=== PATIENT | male | born 1950 | race Caucasian/White ===

== ENCOUNTER 2018-05-14 09:11 | Inpatient (IN) | payer MEDICARE, OTHER ==
[~2018-05-14] VITALS: Ht 172.7 cm; Wt 79.6 kg
[2018-05-14] VITALS (16 sets, daily range): BP systolic 109–153; BP diastolic 51–87; Ht 172.7 cm; Wt 79.6 kg
--- NOTE | ~2018-05-14 | HEMODYNAMI ---
PATIENT:JUSTYN SEPULVEDA MEDICAL RECORD: [id number] : 48 LOCATION:[facility] D.2308 ADMISSION DATE: 05/14/18 Generatedon:05/16/20188:59 Patient name: JUSTYN SEPULVEDA Patient #: [id number] SSN: : 1 08/10/1949 Date of study: 05/16/2018 Page: Of Hemodynamic Procedure Report Patient Data Patient Demographics Procedure consent was obtained First Name: JUSTYN Gender: Male Last Name: COCO : 1950 Patient #: [id number] Age: 67 year(s) Race: Unknown Additional ID: [id number] Contact details Address: [address] [place] [address] State: [place] City: [place] Zip code: [address] Admission Admission Data Admission Date: 05/14/2018 Admission Time: 11:57 Room #: D.2308 Procedure Procedure Types Cath Procedure PCI Procedure Coronary Stent Coronary Stent Initial Procedure Description Procedure Date Procedure Date: 05/16/2018 Procedure Start Time: 8:40 Procedure End Time: 8:57 Procedure Staff Name Function Luiz Mayer MD Performing Physician Christohper Johnson RN Nurse Nikki Rios RT Scrub Hema Chacon RN Nurse Adwoa Valente RT Monitor Procedure Data Cath Procedure Fluoroscopy Diagnostic fluoroscopy Total fluoroscopy Time: 4 time: 4 min min Diagnostic fluoroscopy Total fluoroscopy dose: 433 dose: 433 mGy mGy Contrast Material Contrast Material Type Amount (ml) Isovue 300 62 Entry Location Entry Primary Successful Side Size Upsize Upsize Entry Closure Nair ccessful Closure Location (Fr) 1 (Fr) 2 (Fr) Remarks Device Remarks Radial Right 6 Fr Mechanical artery Short Compression Estimated blood loss: 10 ml Procedure Complications No complications Procedure Medications Medication Administration Route Dosage 0.9% NaCl I.V. 100 ml/hr Oxygen etCO2 Nasal cannula 2 l/min Heparin Flush Bag added to field 2 bags (1000units/500ml NS) Lidocaine 2% added to field 20 Radial Cocktail added to field 1 syringe (Verapomil 2mg/Nitro 400mcg/Heparin 1500units) Versed I.V. 1 mg Fentanyl I.V. 50 mcg Radial Cocktail I.A. 1 syringe (Verapomil 2mg/Nitro 400mcg/Heparin 1500units) Heparin Bolus I.V. 8000 units Nitroglycerin IC/IA I.C. 100 mcg Versed I.V. 1 mg Fentanyl I.V. 50 mcg Plavix P.O. 75 mg Hemodynamics Rest Heart Rate: 61 (bpm) Snapshots Pre Cath Intra NCS Post Cath Vital Signs Time Heart Resp SPO2 etCO2 NIBP (mmHg) Rhythm Pain Sedation Rate (ipm) (%) (mmHg) Status Level (bpm) 8:25:28 84 14 98 0 124/73(102) NSR 0 (11) 10(A) , No pain 8:29:47 59 15 100 32.4 117/58(73) NSR 0 (11) 10(A) , No pain 8:34:03 53 14 98 32.4 93/54(67) NSR 0 (11) 10(A) , No pain 8:38:15 58 19 92 26.4 104/51(80) NSR 0 (11) 10(A) , No pain 8:42:25 69 12 97 29.4 92/54(69) NSR 0 (11) 9(A) , No pain 8:46:33 70 13 96 32.4 107/61(74) NSR 0 (11) 9(A) , No pain 8:50:45 79 13 96 24.1 110/58(82) NSR 0 (11) 9(A) , No pain 8:54:59 77 13 96 30.2 119/62(88) NSR 0 (11) 10(A) , No pain Medications Time Medication Route Dose Verified Delivered Reason Note s Effectiveness by by 8:29:46 0.9% NaCl I.V. 100 Hema Hema Per physician ml/hr Oswaldo Chacno RN RN 8:29:55 Oxygen etCO2 2 l/min Hema Hema Per physician Nasal Oswaldo Chacon cannula RN RN 8:30:08 Heparin Flush added 2 bags Hema Hema used for Bag to Oswaldo Chacon procedure (1000units/500ml field RN RN NS) 8:30:18 Lidocaine 2% added 20ml Hema Hema for local to vial Lorigan Raysaigan anesthetic field RN RN 8:30:30 Radial Cocktail added 1 Hema Hema used for (Verapomil to syringe Oswaldo Chaocn procedure 2mg/Nitro field RN RN 400mcg/Heparin 1500units) 8:30:40 Versed I.V. 1 mg Hema Hema for sedation Oswaldo Chacon RN RN 8:30:52 Fentanyl I.V. 50 mcg Hema Hema for sedation Oswaldo Chacon RN RN 8:41:25 Radial Cocktail I.A. 1 Hema Luiz for (Verapomil syringe Oswaldo Mayer MD vasodilation 2mg/Nitro RN 400mcg/Heparin 1500units) 8:44:30 Versed I.V. 1 mg Hema Hema for sedation Oswaldo Chacon RN RN 8:44:44 Fentanyl I.V. 50 mcg Hema Hema for sedation Oswaldo Chacon RN RN 8:44:51 Heparin Bolus I.V. 8,000 Hema Hema for units Oswaldo Chacon anticoagulation RN RN 8:48:44 Nitroglycerin I.C. 100 mcg Hema Luiz for IC/IA Oswaldo Mayer MD vasodilation RN 8:59:19 Plavix P.O. 75 mg Hema Hema for Oswaldo Chacon antiplatelet RN RN therapy Procedure Log Time Note 8:04:32 Christopher Johnson RN sent for patient. Start room use. 8:04:33 Time tracking: Regular hours (M-F 7:00 - 5:00) 8:04:36 Plan of Care:Hemodynamics will remain stable., Cardiac rhythm will remain stable., Comfort level will be maintained., Respiratory function will remain adequate., Patient/ family verbilizes understanding of procedure., Procedure tolerated without complication., Recovers from procedure without complications.. 8:20:44 Patient received from ICU to CCL 1 Alert and oriented. Tansferred to table in Supine position. 8:20:45 Warm blankets applied, and gricel hugger turned on for patient comfort. 8:20:46 Correct patient and procedure confirmed by team. 8:20:47 Signed procedure consent form obtained from patient. 8:20:56 ECG and BP/O2 sat monitors applied to patient. 8:24:11 Vital chart was started 8:24:13 Baseline sample Acquired. 8:24:18 Rhythm: sinus rhythm 8:24:21 Full Disclosure recording started 8:24:30 H&P Date Dictated: 05/15/2018 Within 30 days and on chart., H&P Addendum completed by physician on day of procedure. (MUST COMPLETE FOR ALL OUTPATIENTS). 8:24:33 Pre-procedure instructions explained to patient. 8:24:35 Family in waiting room. 8:24:39 Patient NPO since Breakfast. 8:24:54 Is the patient allergic to Iodine/contrast media? No. 8:24:56 Was the patient premedicated? Yes 8:24:57 Is patient on blood thinner?Yes 8:25:03 ACC The patient was administered the following blood thiners within the last 24 hours: ACCPlavix 8:26:51 Patient diabetic? No. 8:26:59 Snore? Yes 8:27:00 Sleep apnea? No 8:27:09 Patient pain scale 0/10 ?. 8:27:16 IV patent on arrival in left forearm with 0.9% NaCl at [facility]. 8:27:23 Lab results completed and on chart. 8:27:28 Right Radial & Right Groin area was prepped with chlora-prep and draped in sterile fashion 8:27:30 Alarms reviewed by R. N. 8:27:30 Sharps counted by scrub and verified by R.N. 8:27:31 Physician paged 8:27:33 Physician arrived 8:27:34 --------ALL STOP TIME OUT------ 8:27:34 Final Timeout: patient, procedure, and site verified with staff and physician. All members of the team are in agreement. 8:27:37 Right Radial & Right Groin site verified by team. 8:27:42 Physical assessment completed. ASA score P 2 - A patient with mild systemic disease as per Luiz Mayer MD. 8:27:46 Sedation plan: IV Moderate Sedation Medication:Versed, Fentanyl 8:27:53 Use device set Femoral Dx 8:28:05 ACIST Syringe (97613) opened to sterile field. 8:28:06 Bag Decanter () opened to sterile field. 8:28:06 Medline Cath Pack ([id number]) opened to sterile field. 8:28:07 DIAGNOSTIC WIRE .035 260cm J wire (460080) opened to sterile field. 8:28:09 ACIST Hand Control (84266) opened to sterile field. 8:28:09 ACIST Manifold (69635) opened to sterile field. 8:28:10 DIAGNOSTIC Multipack 5Fr catheter set (OS3991) opened to sterile field. 8:28:11 Tegaderm 4 x 4 (1626W) opened to sterile field. 8:28:39 SHEATH 6Fr Prelude Radial ([id number]) opened to sterile field. 8:28:52 BMW 300cm [place] 2 J wire ([id number]) opened to sterile field. 8:28:53 INFLATOR Merit BasixCompak (FZ3613) opened to sterile field. 8:29:22 TUBING High Pressure Extension Tubing (Moreno) ([id number]) opened to sterile field. 8:29:46 0.9% NaCl 100 ml/hr I.V. was administered by Hema Chacon RN; Per physician; 8:29:55 Oxygen 2 l/min etCO2 Nasal cannula was administered by Hema Chacon RN; Per physician; 8:30:08 Heparin Flush Bag (1000units/500ml NS) 2 bags added to field was administered by Hema Chacon RN; used for procedure; 8:30:18 Lidocaine 2% 20ml vial added to field was administered by Hema Chacon RN; for local anesthetic; 8:30:30 Radial Cocktail (Verapomil 2mg/Nitro 400mcg/Heparin 1500units) 1 syringe added to field was administered by Hema Chacon RN; used for procedure; 8:30:40 Versed 1 mg I.V. was administered by Hema Chacon RN; for sedation; 8:30:52 Fentanyl 50 mcg I.V. was administered by Hema Chacon RN; for sedation; 8:39:22 GUIDE 6FR XBLAD 3.5 catheter ([id number]) opened to sterile field. 8:39:37 Procedure started. 8:40:39 Local anesthetic to right radial artery with Lidocaine 2% by Luiz Mayer MD.INITIAL ACCESS ONLY 8:40:51 A 6 Fr Short sheath was inserted into the Right Radial artery 8:41:06 6 Fr XBLAD 3.5 guide catheter was inserted over the wire 8:41:25 Radial Cocktail (Verapomil 2mg/Nitro 400mcg/Heparin 1500units) 1 syringe I.A. was administered by Luiz Mayer MD; for vasodilation; 8:42:07 BMW wire advanced. 8:44:30 Versed 1 mg I.V. was administered by Hema Chacon RN; for sedation; 8:44:44 Fentanyl 50 mcg I.V. was administered by Hema Chacon RN; for sedation; 8:44:51 Heparin Bolus 8,000 units I.V. was administered by Hema Chacon RN; for anticoagulation; 8:46:10 Wire advanced across lesion. 8:48:44 Nitroglycerin IC/IA 100 mcg I.C. was administered by Luiz Mayer MD; for vasodilation; 8:52:09 Place stent Inflation Number: 1 A INTEGRITY OTW 2.5 X 12 stent ([id number]) was prepped and advanced across the Mid CX. The stent was deployed at 10 RUDY for 0:11 (min:sec). 8:52:45 Stent catheter was removed intact over wire. 8:53:44 Wire removed. 8:54:00 TR BAND Standard ([id number]) opened to sterile field. 8:54:05 Guide catheter removed. 8:54:19 Sheath removed intact; hemostasis achieved with Mechanical Compression to the Right Radial artery. 8:54:22 Procedure ended.(Physican Out) 8:55:31 Fluoroscopy time 04.00 minutes. 8:55:36 Flurop Dose total: 433 8:55:36 Fluoroscopy dose: 433 mGy 8:55:43 Contrast amount:Isovue 300 62ml. 8:55:46 Sharps counted by scrub and verified by R.N. 8:56:02 TR band inflated with 12cc of air. 8:56:05 Insertion/operative site no bleeding no hematoma. 8:56:08 Post Procedure Pulses reassessed and unchanged 8:56:13 Post procedure rhythm: sinus rhythm 8:56:18 Estimated blood loss: 10 ml 8:56:21 Post procedure instruction explained to patient.Patient verbalizes understanding. 8:56:44 Procedure and supply charges have been captured, reviewed, submitted and are correct. 8:57:15 Procedure Complication : No complications 8:57:19 Vital chart was stopped 8:57:33 Report given to ICU. 8:57:38 Patient transfered to ICU with Bed. 8:57:44 Procedure ended. 8:57:44 Full Disclosure recording stopped 8:57:47 End room use (Document Last) 8:59:19 Plavix 75 mg P.O. was administered by Hema Chacon RN; for antiplatelet therapy; 8:59:36 ACC-PCI Only Patient was given prescriptions, or instructed by Luiz Mayer MD to start/continue the following medications upon discharge: Plavix Intervention Summary Intervention Notes Time ActionType Lesion and Equipment Action# Pressure Duration Attributes Used 8:52:09 Place stent Mid CX INTEGRITY 1 10 00:11 OTW 2.5 X 12 stent ([id number]) Device Usage Item Name Manufacture Quantity Catalog Number Hospital Part Current M inimal Lot# / Charge Number Stock Stock Serial# Code ACIST Syringe Acist 1 07413 385233 391548 630770 2 0 (31693) Medical Systems Inc Bag Decanter Microtek 1 2001S 831889 73811 920610 5 (2001S) Medical Inc. Medline Cath Cardinal 1 [id number] 433149 03411 621844 5 Zutux Health ([id number]) DIAGNOSTIC WIRE [facility] Timothy 1 650634 306925 337568 777292 3 0 .035 260cm J wire (665853) ACIST Hand Acist 1 68645 514125 599559 669912 5 Control (79587) Medical Systems Inc ACIST Manifold Acist 1 84724 729529 785630 156569 5 (45287) Medical Systems Inc DIAGNOSTIC Cardinal 1 LQ5594 355317 01979 767499 3 0 Multipack 5Fr Health catheter set (XP6007) Tegaderm 4 x 4 3M 1 1626W 714292 778198 209070 5 (1626W) SHEATH 6Fr Merit 1 [id number] 653150 658297 055257 5 Prelude Radial Medical ([id number]) BMW 300cm [place] 1 [id number] 793529 869952 828565 5 [place] 2 J Vascular wire ([id number]) INFLATOR Merit Merit 1 AP8779 141058 700375 023219 1 5 Reksoft Medical (EY1935) TUBING High Merit 1 [id number] 647600 90863 365452 1 0 Pressure Medical Extension Tubing (Moreno) (RL5544M) GUIDE 6FR XBLAD Cardinal 1 [id number] 396530 474160 177327 1 0 3.5 catheter Health ([id number]) INTEGRITY OTW Medtronic 1 [id number] 335884 236288 3 [id number] 2.5 X 12 stent ([id number]) TR BAND Terumo 1 [id number] 154058 871673 618475 4 0 Standard ([id number]) Signature Audit [place] Stage Time Signature Unsigned Intra-Procedure 05/16/2018 Adwoa Valente 8:59:53 AM RT(R) Signatures Monitor : Adwoa Valente Signature : RT Date : Time : [id number] [place] [address]
--- NOTE | ~2018-05-14 | MORECARE ---
CASE MANAGEMENT DISCHARGE SUMMARY PATIENT: JUSTYN SEPULVEDA UNIT: [id number] ADM DATE: 05/14/18 AGE: 67 : 49 SEX: M ROOM/BED: D.2308 AUTHOR: ANGELA WATSON PHYSICIAN: REFERRING PHYSICIAN: ERIC HANSON DO DATE OF SERVICE: 05/17/18 Discharge Plan Patient Name: JUSTYN SEPULVEDA Facility: [facility]:[place] : 1950 Planned Disposition: Home Anticipated Discharge Date: 05/17/18 Discharge Date: 05/16/2018 Expected LOS: 3 Initial Reviewer: [email or web address] Initial Review Date: 05/14/2018 Generated: 05/17/18 2:46 pm DCP- Discharge Planning Updated by [email or web address]: Talia Lucas on 05/14/18 12:[address] Patient Name: JUSTYN SEPULVEDA Admission Status: ER Accout number: [id number] Admission Date: 05-14-2018 : 1950 Admission Diagnosis: Attending: Eric Hanson Current LOS: 1 Anticipated DC Date: 05-17-2018 Planned Disposition: Home Primary Insurance: MEDICARE A & B Discharge Planning Comments: CM met with patient and spouse to complete initial dc planning assessment. CM educated patient on the CM role and verbal consent given by patient to complete assessment. Patient lives at home with his . He reports he is independent in his care at home. He was playing golf this morning when he started feeling bad. At discharge patient hopes to return home and feels this is a safe discharge. Patient is unsure what he will need at discharge. CM will continue to follow and will assist as needed with dc plans/needs. See below for more assessment information. Is the patient Alert and Oriented? Yes * How many steps to enter\exit or inside your home? None * PCP Dr. Jackson * Pharmacy [facility] * Preadmission Environment Home with Family * ADLs Independent * Equipment None * List name and contact numbers for known caregivers / representatives who currently or will assist patient after discharge: Tavia Orourke - - [phone] Radha Rosado - Niece - [phone] * Verbal permission to speak to the caregivers and representatives has been obtained from the patient. Yes * Community resources currently utilized None * Has this patient been hospitalized within the prior 30 days at any hospital? No Blast Furnace Keeper Helper: Talia Lucas DCPIA - Discharge Planning Initial Assessment Updated by [email or web address]: Talia Lucas on 05/14/18 1:53 pm * Is the patient Alert and Oriented? Yes * How many steps to enter\exit or inside your home? None * PCP Dr. Jackson * Pharmacy [facility] * Preadmission Environment Home with Family * ADLs Independent * Equipment None * List name and contact numbers for known caregivers / representatives who currently or will assist patient after discharge: Tavia Orourke - - [phone] - [phone] * Verbal permission to speak to the caregivers and representatives has been obtained from the patient. Yes * Community resources currently utilized None * Has this patient been hospitalized within the prior 30 days at any hospital? No Coverage Notice Reviewer: [email or web address] William Allred Notice Issued Date-Time: 05/16/2018 12:55 Notice Type: IM Discharge Notice Notice Delivered To: Patient Relationship to Patient: Self Water Treatment Plant Operator Name: Delivery Method: HAND - Hand Delivered Hanny Days: Prior Verbal Notification: Recipient Understood Notice: Yes Recipient Signature: Yes Med Rec Note Co-signed by Attending: Coverage Notice Comment: Last DP export: 05/14/18 1:02 Patient Name: JUSTYN SEPULVEDA Page 38365 at 1346 All edits/amendments must be made on the electronic document DICTATION DATE: 05/17/18 1346 OYSTER BUYER: CLAUDIA 05/17/18 1346 RPT#: [id number] DC DATE:05/16/18 STATUS: DIS IN [facility] [address] [place] [address] END OF REPORT
--- NOTE | ~2018-05-14 | MORECARE ---
CASE MANAGEMENT DISCHARGE SUMMARY PATIENT: JUSTYN SEPULVEDA UNIT: [id number] ADM DATE: 05/14/18 AGE: 67 : 49 SEX: M ROOM/BED: D.2308 AUTHOR: ANGELA WATSON PHYSICIAN: REFERRING PHYSICIAN: ERIC HANSON DO DATE OF SERVICE: 05/14/18 Discharge Plan Patient Name: JUSTYN SEPULVEDA Facility: [facility]:[place] : 1950 Planned Disposition: Home Anticipated Discharge Date: 05/17/18 Discharge Date: Expected LOS: 3 Initial Reviewer: [email or web address] Initial Review Date: 05/14/2018 Generated: 05/14/18 3:02 pm DCP- Discharge Planning Updated by [email or web address]: Talia Lucas on 05/14/18 12:[address] Patient Name: JUSTYN SEPULVEDA Admission Status: ER Accout number: [id number] Admission Date: 05-14-2018 : 1950 Admission Diagnosis: Attending: Eric Hanson Current LOS: 1 Anticipated DC Date: 05-17-2018 Planned Disposition: Home Primary Insurance: MEDICARE A & B Discharge Planning Comments: CM met with patient and spouse to complete initial dc planning assessment. CM educated patient on the CM role and verbal consent given by patient to complete assessment. Patient lives at home with his . He reports he is independent in his care at home. He was playing golf this morning when he started feeling bad. At discharge patient hopes to return home and feels this is a safe discharge. Patient is unsure what he will need at discharge. CM will continue to follow and will assist as needed with dc plans/needs. See below for more assessment information. Is the patient Alert and Oriented? Yes * How many steps to enter\exit or inside your home? None * PCP Dr. Jackson * Pharmacy [facility] * Preadmission Environment Home with Family * ADLs Independent * Equipment None * List name and contact numbers for known caregivers / representatives who currently or will assist patient after discharge: Tavia Orourke - - [phone] Radha Rosado - Niece - [phone] * Verbal permission to speak to the caregivers and representatives has been obtained from the patient. Yes * Community resources currently utilized None * Has this patient been hospitalized within the prior 30 days at any hospital? No Donor Technician: Talia Lucas DCPIA - Discharge Planning Initial Assessment Updated by [email or web address]: Talia Lucas on 05/14/18 1:53 pm * Is the patient Alert and Oriented? Yes * How many steps to enter\exit or inside your home? None * PCP Dr. Jackson * Pharmacy [facility] * Preadmission Environment Home with Family * ADLs Independent * Equipment None * List name and contact numbers for known caregivers / representatives who currently or will assist patient after discharge: Tavia Orourke - - [phone] Radha Thomas Niadrianna - [phone] * Verbal permission to speak to the caregivers and representatives has been obtained from the patient. Yes * Community resources currently utilized None * Has this patient been hospitalized within the prior 30 days at any hospital? No Last DP export: 05/14/18 12:55 Patient Name: JUSTYN SEPULVEDA Page 71232 at 1402 All edits/amendments must be made on the electronic document DICTATION DATE: 05/14/18 140 LACQUER SHADER: CLAUDIA 05/14/18 140 RPT#: [id number] DC DATE: STATUS: ADM IN [facility] [address] [place] [address] END OF REPORT
--- NOTE | ~2018-05-14 | MORECARE ---
CASE MANAGEMENT DISCHARGE SUMMARY PATIENT: JUSTYN SEPULVEDA UNIT: [id number] ADM DATE: 05/14/18 AGE: 67 : 49 SEX: M ROOM/BED: D.2308 AUTHOR: ANGELA WATSON PHYSICIAN: REFERRING PHYSICIAN: ERIC HANSON DO DATE OF SERVICE: 05/14/18 Discharge Plan Patient Name: JUSTYN SEPULVEDA Facility: [facility]:[place] : 1950 Planned Disposition: Home Anticipated Discharge Date: 05/17/18 Discharge Date: Expected LOS: 3 Initial Reviewer: [email or web address] Initial Review Date: 05/14/2018 Generated: 05/14/18 2:55 pm DCPIA - Discharge Planning Initial Assessment Updated by [email or web address]: Talia Lucas on 05/14/18 1:53 pm * Is the patient Alert and Oriented? Yes * How many steps to enter\exit or inside your home? None * PCP Dr. Jackson * Pharmacy [facility] * Preadmission Environment Home with Family * ADLs Independent * Equipment None * List name and contact numbers for known caregivers / representatives who currently or will assist patient after discharge: Tavia Orourke - - [phone] Radha Rosado - Niece - [phone] * Verbal permission to speak to the caregivers and representatives has been obtained from the patient. Yes * Community resources currently utilized None * Has this patient been hospitalized within the prior 30 days at any hospital? No Patient Name: JUSTYN SEPULVEDA Page 77960 at 1356 All edits/amendments must be made on the electronic document DICTATION DATE: 05/14/18 1355 PLASTICS SHEET FINISHING PRESS OPERATOR: CLAUDIA 05/14/18 1355 RPT#: [id number] DC DATE: STATUS: ADM IN [facility] [address] [place] [address] END OF REPORT
--- NOTE | ~2018-05-14 | HEMODYNAMI ---
PATIENT:JUSTYN SEPULVEDA MEDICAL RECORD: [id number] : 48 LOCATION:[facility] D.2308 ADMISSION DATE: 05/14/18 Generatedon:05/14/201814:54 Patient name: JUSTYN SEPULVEDA Patient #: [id number] SSN: : 1 08/10/1949 Date of study: 05/14/2018 Page: Of Hemodynamic Procedure Report Patient Data Patient Demographics Procedure consent was obtained First Name: JUSTYN Gender: Male Last Name: COCO : 1950 Patient #: [id number] Age: 67 year(s) Race: Unknown Additional ID: [id number] Contact details Address: [address] [place] [address] State: [place] City: [place] Zip code: [address] Admission Admission Data Admission Date: 05/14/2018 Admission Time: 11:57 Room #: D.2308 Procedure Procedure Types Cath Procedure Diagnostic Procedure LHC LH w/Coronaries Sedation Charges Moderate Sedation up to 15 minutes PCI Procedure Coronary Stent Coronary Stent Initial Procedure Description Procedure Date Procedure Date: 05/14/2018 Procedure Start Time: 14:08 Procedure End Time: 14:36 Procedure Staff Name Function Luiz Madden MD Performing Physician Nikki Rios RT Monitor Maureen Gilbert RT Scrub Christopher Johnson RN Nurse Procedure Data Cath Procedure Fluoroscopy Diagnostic fluoroscopy Total fluoroscopy Time: 5.4 time: 5.4 min min Diagnostic fluoroscopy Total fluoroscopy dose: 648 dose: 648 mGy mGy Contrast Material Contrast Material Type Amount (ml) Isovue 300 132 Entry Location Entry Primary Successful Side Size Upsize Upsize Entry Closure Succes sful Closure Location (Fr) 1 (Fr) 2 (Fr) Remarks Device Remarks Femoral Right 6 Fr Exoseal artery Short Estimated blood loss: 5 ml Diagnostic catheters Device Type Used For End Catheter Placement MULTIPACK JL 4.0 5Fr Left Coronary catheter Angiography MULTIPACK 3DRC 5Fr Right Coronary catheter Angiography MULTIPACK Pigtail 5 Fr LV Angiography catheter Procedure Complications No complications Procedure Medications Medication Administration Route Dosage Oxygen etCO2 Nasal cannula 2 l/min Lidocaine 2% added to field 20 Heparin Flush Bag added to field 2 bags (1000units/500ml NS) 0.9% NaCl I.V. 100 ml/hr Versed I.V. 0.5 mg Fentanyl I.V. 50 mcg Fentanyl I.V. 25 mcg Heparin Bolus I.V. 8000 units Nitroglycerin IC/IA I.C. 100 mcg Plavix P.O. 600 mg Hemodynamics Rest Heart Rate: 98 (bpm) Pressure Samples Time Site Value (mmHg) Purpose Heart Use Rate(bpm) 14:17 LV 151/13,37 Snapshot 97 14:18 AO 148/83(115) Pullback 97 14:18 LV 154/15,40 Pullback 97 Gradients Valve Time Site 1 Site 2 Mean SEP/DFP Peak To Heart Use (mmHg) (sec/min) Peak Rate (mmHg) (bpm) Aortic 14:18 LV AO 8 20 6 97 154/15,40 148/83(115) Calculations Valve P-P Mean Valve Index Valve Source Name Gradient Area Flow (cm2) Aortic 6 8 6 8 Snapshots Pre Cath Intra NCS Post Cath Vital Signs Time Heart Resp SPO2 etCO2 NIBP (mmHg) Rhythm Pain Sedation Rate (ipm) (%) (mmHg) Status Level (bpm) 14:00:03 98 16 98 31.4 145/81(116) NSR 0 (11) 10(A) , No pain 14:04:29 94 16 97 33.6 135/79(108) NSR 0 (11) 10(A) , No pain 14:08:53 89 15 98 35.1 129/78(105) NSR 0 (11) 10(A) , No pain 14:13:13 94 15 98 36.6 127/76(107) NSR 0 (11) 10(A) , No pain 14:17:29 96 16 98 37.4 137/84(112) NSR 0 (11) 10(A) , No pain 14:21:49 99 16 99 36.6 141/85(111) NSR 0 (11) 10(A) , No pain 14:26:05 102 16 100 35.9 128/78(100) NSR 0 (11) 10(A) , No pain 14:30:23 100 15 100 35.1 138/81(97) NSR 0 (11) 10(A) , No pain 14:34:46 91 18 98 34.4 133/81(105) NSR 0 (11) 10(A) , No pain Medications Time Medication Route Dose Verified Delivered Reason Notes Effectiveness by by 14:02:18 Oxygen etCO2 2 Luiz Buffie used for Nasal l/min Moreno Johnson RN procedure cannula 14:02:26 Lidocaine 2% added 20ml Luiz Luiz for local to vial Moreno Madden MD anesthetic field 14:02:32 Heparin Flush added 2 Luiz Luiz used for Bag to bags Moreno Madden MD procedure (1000units/500ml field NS) 14:02:40 0.9% NaCl I.V. 100 Luiz Buffie Per physician ml/hr Moreno Johnson RN 14:07:15 Versed I.V. 0.5 Luiz Buffie for sedation mg Moreno Johnson RN 14:07:20 Fentanyl I.V. 50 Luiz Buffie for sedation mcg Moreno Johnson RN 14:15:52 Fentanyl I.V. 25 Luiz Buffie for sedation mcg Moreno Johnson RN 14:22:07 Heparin Bolus I.V. 8000 Luiz Buffie for verif ied units Moreno Johnson RN anticoagulation with dr madden 14:31:52 Nitroglycerin I.C. 100 Luiz Luiz for IC/IA mcg Moreno Madden MD vasodilation 14:36:45 Plavix P.O. 600 Luiz Buffie for mg Moreno Johnson RN antiplatelet therapy Procedure Log Time Note 13:23:10 Christopher Johnson RN sent for patient. Start room use. 13:23:11 Time tracking: Regular hours (M-F 7:00 - 5:00) 13:23:16 Plan of Care:Hemodynamics will remain stable., Cardiac rhythm will remain stable., Comfort level will be maintained., Respiratory function will remain adequate., Patient/ family verbilizes understanding of procedure., Procedure tolerated without complication., Recovers from procedure without complications.. 13:50:36 Pt with c[address]lar in place, pt was transferred to procedure bed via slide board with c spine immobilization maintained during move. 13:50:47 Patient received from ICU to [facility] 1 Alert and oriented. Tansferred to table in Supine position. 13:50:48 Warm blankets applied, and gricel hugger turned on for patient comfort. 13:50:48 Correct patient and procedure confirmed by team. 13:50:50 Signed procedure consent form obtained from patient. 13:50:50 ECG and BP/O2 sat monitors applied to patient. 13:50:51 Full Disclosure recording started 13:58:40 Vital chart was started 13:58:41 Baseline sample Acquired. 13:58:45 Rhythm: sinus rhythm 13:58:53 H&P Date Dictated: 05/14/2018 New H&P dictated by physician.. 13:58:55 Pre-procedure instructions explained to patient. 13:58:55 Pre-op teaching completed and patient verbalized understanding. 13:58:57 Family in waiting room. 13:58:58 Patient NPO since Midnight. 14:00:02 Is the patient allergic to Iodine/contrast media? No. 14:00:04 Was the patient premedicated? No 14:00:08 Is patient on blood thinner?No 14:00:10 Patient diabetic? No. 14:00:13 Previous problem with sedation/anesthesia? No ? 14:00:15 Snore? Yes 14:00:16 Sleep apnea? No 14:00:17 Deviated septum? No 14:00:17 Opens mouth fully? Yes 14:00:18 Sticks out tongue? Yes 14:00:20 Airway obstruction? No ? 14:00:28 Dentures? Yes broken tooth 14:02:00 Pre procedure: right dorsailis pedis pulse 2+ Normal; easily identifiable; not easily obliterated 14:02:02 Pre procedure: left dorsailis pedis pulse 2+ Normal; easily identifiable; not easily obliterated 14:02:04 Patient pain scale 0/10 ?. 14:02:14 IV patent on arrival in right antecubital with 0.9% NaCl at [facility]. 14:02:16 Lab results completed and on chart. 14:02:18 Oxygen 2 l/min etCO2 Nasal cannula was administered by Christopher Johnson RN; used for procedure; 14:02:21 Right groin area was prepped with chlora-prep and draped in sterile fashion 14:02:22 Alarms reviewed by R. N. 14:02:22 Sharps counted by scrub and verified by R.N. 14:02:24 Physician arrived 14:02:24 --------ALL STOP TIME OUT------ 14:02:25 Final Timeout: patient, procedure, and site verified with staff and physician. All members of the team are in agreement. 14:02:26 Lidocaine 2% 20ml vial added to field was administered by Luiz Madden MD; for local anesthetic; 14:02:31 Right groin site verified by team. 14:02:32 Heparin Flush Bag (1000units/500ml NS) 2 bags added to field was administered by Luiz Madden MD; used for procedure; 14:02:34 Physical assessment completed. ASA score P 3 - A patient with severe systemic disease as per Luiz Madden MD. 14:02:39 Sedation plan: IV Moderate Sedation Medication:Versed, Fentanyl 14:02:40 0.9% NaCl 100 ml/hr I.V. was administered by Christopher Johnson RN; Per physician; 14:02:43 Use device set Femoral Dx 14:02:44 ACIST Syringe (49122) opened to sterile field. 14:02:45 Bag Decanter (2002S) opened to sterile field. 14:02:45 Medline Cath Pack ([id number]) opened to sterile field. 14:02:46 DIAGNOSTIC WIRE .035 260cm J wire (979999) opened to sterile field. 14:02:47 ACIST Hand Control (64384) opened to sterile field. 14:02:48 ACIST Manifold (74448) opened to sterile field. 14:02:48 DIAGNOSTIC Multipack 5Fr catheter set (DO0021) opened to sterile field. 14:02:49 Tegaderm 4 x 4 (1626W) opened to sterile field. 14:02:50 SHEATH Prelude 6Fr 0.035 (DFD-1F-10-035) opened to sterile field. 14:07:15 Versed 0.5 mg I.V. was administered by Christopher Johnson RN; for sedation; 14:07:20 Fentanyl 50 mcg I.V. was administered by Christopher Johnson RN; for sedation; 14:08:31 Procedure started. 14:08:47 Local anesthetic to right femoral artery with Lidocaine 2% by Luiz Madden MD.INITIAL ACCESS ONLY 14:12:42 A 6 Fr Short sheath was inserted into the Right Femoral artery 14:12:50 A MULTIPACK JL 4.0 5Fr catheter was advanced over the wire and used for Left Coronary Angiography. 14:13:10 LCA angiography performed. 14:13:17 Injector settings: Ml/sec: 3, Volume: 6, 14:15:09 Catheter removed. 14:15:17 A MULTIPACK 3DRC 5Fr catheter was advanced over the wire and used for Right Coronary Angiography. 14:15:52 Fentanyl 25 mcg I.V. was administered by Christopher Johnson RN; for sedation; 14:16:02 RCA angiography performed. 14:16:06 Injector settings: Ml/sec: 3, Volume: 6, 14:16:08 Catheter removed. 14:16:13 A MULTIPACK Pigtail 5 Fr catheter was advanced over the wire and used for LV Angiography. 14:17:15 BMW 300cm [place] 2 J wire ([id number]) opened to sterile field. 14:17:16 GUIDE 6FR XBLAD 3.5 catheter ([id number]) opened to sterile field. 14:17:16 INFLATOR Merit BasixCompak (HP1662) opened to sterile field. 14:18:08 TUBING High Pressure Extension Tubing (Moreno) (JD7531T) opened to sterile field. 14:18:31 LV hemodynamics recorded. 14:18:32 LV gram done using FLOWERS 14:18:49 EF : 35 % 14:18:55 Catheter removed. 14:18:56 Proceeding to intervention. 14:19:05 6 Fr xblad 3.5 guide catheter was inserted over the wire 14:19:21 bmw wire advanced. 14:22:07 Heparin Bolus 8000 units I.V. was administered by Christopher Johnson RN; for anticoagulation; verified with dr madden 14:25:15 Inflate balloon Inflation number: 1 A EMERGE OTW 2.5 x 15 balloon ([id number]) was prepped and advanced across the Mid LAD, then inflated to 12 RUDY for 0:10 (min:sec). 14:25:37 Inflation number: 2 The EMERGE OTW 2.5 x 15 balloon ([id number]) was reinflated across the Mid LAD, to 14 RUDY for 0:10 (min:sec). 14:26:43 Balloon removed over the wire. 14:30:06 Place stent Inflation Number: 3 A INTEGRITY RX 3.0 x 30 stent ([id number]) was prepped and advanced across the Mid LAD. The stent was deployed at 12 RUDY for 0:10 (min:sec). 14:31:20 Stent catheter was removed intact over wire. 14:31:52 Nitroglycerin IC/IA 100 mcg I.C. was administered by Luiz Madden MD; for vasodilation; 14:33:23 Wire removed. 14:33:24 Guide catheter removed. 14:33:40 EXOSEAL 6Fr (EX600) opened to sterile field. 14:33:51 Sheath removed intact; hemostasis achieved with Exoseal to the Right Femoral artery. 14:33:54 Procedure ended.(Physican Out) 14:34:07 Fluoroscopy time 05.40 minutes. 14:34:12 Fluoroscopy dose: 648 mGy 14:34:12 Flurop Dose total: 648 14:34:17 Contrast amount:Isovue 300 132ml. 14:34:19 Sharps counted by scrub and verified by R.N. 14:34:19 Insertion/operative site no bleeding no hematoma. 14:34:22 Post-op/insertion site Right Femoral artery dressed using a 4 x 4 and Tegaderm. 14:34:27 Post right femoral artery:stable 14:34:29 Post Procedure Pulses reassessed and unchanged 14:34:31 Post procedure rhythm: unchanged. 14:34:34 Estimated blood loss: 5 ml 14:34:36 Post procedure instruction explained to patient.Patient verbalizes understanding. 14:34:37 Patient needs reinforcement of post procedure teaching. 14:35:08 Procedure type changed to Cath procedure, Diagnostic procedure, LHC, LHC w/Coronaries, Sedation Charges, Moderate Sedation up to 15 minutes, PCI procedure, Coronary Stent, Coronary Stent Initial 14:35:09 Procedure and supply charges have been captured, reviewed, submitted and are correct. 14:35:14 Procedure Complication : No complications 14:35:17 Vital chart was stopped 14:35:18 See physician's report for complete and final results. 14:35:55 Report given to ICU. 14:35:58 Patient transfered to ICU with Stretcher. 14:36:00 Procedure ended. 14:36:00 Full Disclosure recording stopped 14:36:27 ACC-PCI Only Patient was given prescriptions, or instructed by Luiz Madden MD to start/continue the following medications upon discharge: Plavix 14:36:32 End room use (Document Last) 14:36:45 Plavix 600 mg P.O. was administered by Christopher Johnson RN; for antiplatelet therapy; Intervention Summary Intervention Notes Time ActionType Lesion and Equipment Action# Pressure Duration Attributes Used 14:25:15 Inflate Mid LAD EMERGE OTW 1 12 00:10 balloon 2.5 x 15 balloon ([id number]) 14:25:37 Reinflate Mid LAD EMERGE OTW 2 14 00:10 balloon 2.5 x 15 balloon ([id number]) 14:30:06 Place stent Mid LAD INTEGRITY RX 3 12 00:10 3.0 x 30 stent ([id number]) Device Usage Item Name Manufacture Quantity Catalog Number Hospital Part Current Minimal Lot# / Charge Number Stock Stock Serial# Code ACIST Syringe Acist 1 38233 748276 158735 299004 20 (09736) [employer] Bag Decanter Microtek 1 [id number] 06211 897210 5 () Medical Inc. Medline Cath Cardinal 1 [id number] 485940 61874 820965 5 Pack Health ([id number]) DIAGNOSTIC WIRE [facility] 1 446507 182205 738117 401048 30 .035 260cm J wire (256690) ACIST Hand Acist 1 97170 352102 840373 489615 5 Control (70912) [employer] Inc ACIST Manifold Acist 1 02429 330892 488635 398870 5 (04877) [employer] Inc DIAGNOSTIC Cardinal 1 BO1830 909612 04592 343466 30 Multipack 5Fr Health catheter set (UT4486) Tegaderm 4 x 4 3M 1 1626W 502032 340530 673265 5 (1626W) MULTIPACK JL Cardinal 1 855246 5 4.0 5Fr Health catheter MULTIPACK 3DRC Cardinal 1 136176 5 5Fr catheter Health MULTIPACK Cardinal 1 193899 5 Pigtail 5 Fr Health catheter SHEATH Prelude Merit 1 XBO-7L-32-35 332416 9225738 021919 5 6Fr 0.035 Medical (RBW-4U-34-035) BMW 300cm [place] 1 [id number] 039285 461933 926216 5 [place] 2 J Vascular wire (3412159F) GUIDE 6FR XBLAD Cardinal 1 [id number] 420069 383574 895066 10 3.5 catheter Health (27124598) INFLATOR Merit Merit 1 GW2666 035962 572701 434502 15 BasixCompak Medical (AP1576) TUBING High Merit 1 [id number] 219232 51178 288387 10 Pressure Medical Extension Tubing (Madden) (QG6191G) EMERGE OTW 2.5 [place] 1 [id number] 416930 254833 144208 5 x 15 balloon Scientific ([id number]) INTEGRITY RX Medtronic 1 [id number] 461908 746733 876458 5 [id number] 3.0 x 30 stent ([id number]) EXOSEAL 6Fr Cardinal 1 EX600 406443 953164 392586 10 (EX600) Health Signature Audit [place] Stage Time Signature Unsigned Intra-Procedure 05/14/2018 Nikki Rios 2:54:08 PM RT(R) Signatures Monitor : Nikki Rios RT Signature : Date : Time : [id number] [place] [address]
[2018-05-14 09:39] LABS: BASOPHILS 0.5 % (0-2); EOSINOPHILS 3.7 % (0-7); HEMATOCRIT 43.5 % (42.0-54.0); HEMOGLOBIN 15.4 g/dL (13.5-17.5); IMMATURE GRANULOCYTES 0.4 % (0-5); LYMPHOCYTES 43.7 % (15-50); MCH 34.2 pg (26.0-34.0); MCHC 35.4 g/dL (31.0-37.0); MCV 96.7 fL (80.0-100.0); MEAN PLATELET VOLUME 9.9 fL (7.4-10.4); MONOCYTES 9.6 % (2-11); NEUTROPHILS 42.1 % (40-80); PLATELET COUNT 204 10x3/uL (130-400); RDW 12.4 % (11.5-14.5); WBC 7.9 10x3/uL (4.8-10.8)
[2018-05-14 09:55] LABS: ALKALINE PHOSPHATASE 122 U/L (46-116); ALT (SGPT) 38 U/L (10-68); BILIRUBIN - TOTAL 0.72 mg/dL (0.2-1.3); CALC OSMOLALITY 285 mosm/kg (275-300); CARBON DIOXIDE 25.6 mmol/L (21.0-32.0); CHLORIDE - SERUM 104 mmol/L (98-107); CREATININE - SERUM 1.1 mg/dL (0.6-1.3); GLUCOSE 136 mg/dL (74-106); POTASSIUM - SERUM 3.7 mmol/L (3.5-5.1); PROTEIN - SERUM 7.6 g/dL (6.4-8.2); SODIUM 143 mmol/L (136-145); UREA NITROGEN 11 mg/dL (7-18); eGFR NON AFRICAN AMERICAN 71 mL/min (90-120)
[2018-05-14 10:06] LABS: CREATINE KINASE 64 UL (21-232)
[2018-05-14 10:07] LABS: TROPONIN-I < 0.017 ng/mL (0.000-0.060)
[2018-05-14 12:10] LABS: LDL-HDL RATIO 1.8 ratio (1.5-3.5)
[2018-05-14] MEDS ORDERED: BAYER CHEWABLE81 MG PO (13:11)
[2018-05-14] MEDS ORDERED: VITAMIN A10000 UNIT PO (13:12)
[2018-05-14] MEDS ORDERED: FISH OIL 1,0001 CA1 PO (13:13)
[2018-05-14] MEDS ORDERED: ASCORBIC ACID500 MG PO (13:14)
[2018-05-14] MEDS ORDERED: VITAMIN E400 UNI2 PO (13:15)
[2018-05-14] MEDS ORDERED: MULTI-DAY VITAM1 TAB PO (13:17)
[2018-05-14] MEDS ORDERED: VITAMIN E600 UNIT (13:17)
[2018-05-15] VITALS (24 sets, daily range): BP systolic 86–136; BP diastolic 40–86
[2018-05-15 04:16] LABS: BASOPHILS 0.1 % (0-2); EOSINOPHILS 0.4 % (0-7); HEMATOCRIT 37.1 % (42.0-54.0); IMMATURE GRANULOCYTES 0.3 % (0-5); LYMPHOCYTES 17.1 % (15-50); MCH 33.9 pg (26.0-34.0); MCV 96.6 fL (80.0-100.0); MEAN PLATELET VOLUME 9.9 fL (7.4-10.4); MONOCYTES 10.4 % (2-11); NEUTROPHILS 71.7 % (40-80); RBC 3.84 10x6/uL (4.20-6.10); RDW 12.3 % (11.5-14.5)
[2018-05-15 04:17] LABS: PLATELET COUNT 149 10x3/uL (130-400); WBC 11.4 10x3/uL (4.8-10.8)
[2018-05-15 04:30] LABS: CALC OSMOLALITY 268 mosm/kg (275-300); CALCIUM 8.3 mg/dL (8.5-10.1); CARBON DIOXIDE 24.8 mmol/L (21.0-32.0); CHLORIDE - SERUM 101 mmol/L (98-107); CREATININE - SERUM 0.9 mg/dL (0.6-1.3); GLUCOSE 124 mg/dL (74-106); POTASSIUM - SERUM 3.6 mmol/L (3.5-5.1); SODIUM 135 mmol/L (136-145); eGFR NON AFRICAN AMERICAN 89 mL/min (90-120)
[2018-05-15 04:31] LABS: UREA NITROGEN 8 mg/dL (7-18)
[2018-05-16] VITALS (19 sets, daily range): BP systolic 88–128; BP diastolic 56–79
[2018-05-16 04:33] LABS: BASOPHILS 0.3 % (0-2); HEMATOCRIT 37.6 % (42.0-54.0); HEMOGLOBIN 12.9 g/dL (13.5-17.5); IMMATURE GRANULOCYTES 0.4 % (0-5); LYMPHOCYTES 27.4 % (15-50); MCH 33.2 pg (26.0-34.0); MCHC 34.3 g/dL (31.0-37.0); MCV 96.9 fL (80.0-100.0); MEAN PLATELET VOLUME 10.4 fL (7.4-10.4); MONOCYTES 12.4 % (2-11); NEUTROPHILS 58.5 % (40-80); PLATELET COUNT 151 10x3/uL (130-400); RBC 3.88 10x6/uL (4.20-6.10); RDW 12.5 % (11.5-14.5); WBC 9.4 10x3/uL (4.8-10.8)
[2018-05-16 05:09] LABS: CALC OSMOLALITY 280 mosm/kg (275-300); CALCIUM 8.4 mg/dL (8.5-10.1); CARBON DIOXIDE 25.1 mmol/L (21.0-32.0); CHLORIDE - SERUM 106 mmol/L (98-107); CREATININE - SERUM 0.9 mg/dL (0.6-1.3); GLUCOSE 108 mg/dL (74-106); POTASSIUM - SERUM 3.6 mmol/L (3.5-5.1); SODIUM 141 mmol/L (136-145); T4 THYROXIN - FREE 1.22 ng/dL (0.76-1.46); THYROID STIMULATING HORMONE 0.69 uIU/mL (0.36-3.74); eGFR NON AFRICAN AMERICAN 89 mL/min (90-120)
[2018-05-16 05:10] LABS: UREA NITROGEN 11 mg/dL (7-18)
[2018-05-16] MEDS ORDERED: PLAVIX75 MG PO (09:48)
[2018-05-16] MEDS ORDERED: COREG 3.1253.125 MG PO (09:48)
== END 2018-05-16 16:49 | disposition home or self-care (01) | DRG 248 ==
LOC: D.ER 09:11 → D.ICU 11:57
PROVIDERS: Family Medicine; Internal Medicine Cardiovascular Disease; Internal Medicine Nephrology
PROC: B2111ZZ Fluoroscopy of Multiple Coronary Arteries using Low Osmolar Contrast (ICD-10-PCS; 2018-05-14)
PROC: B2151ZZ Fluoroscopy of Left Heart using Low Osmolar Contrast (ICD-10-PCS; 2018-05-14)
PROC: 4A023N7 Measurement of Cardiac Sampling and Pressure, Left Heart, Percutaneous Approach (ICD-10-PCS; 2018-05-14)
PROC: 02703DZ Dilation of Coronary Artery, One Artery with Intraluminal Device, Percutaneous Approach (ICD-10-PCS; 2018-05-14 13:23)
PROC: 02703DZ Dilation of Coronary Artery, One Artery with Intraluminal Device, Percutaneous Approach (ICD-10-PCS; principal; 2018-05-16 09:00)
DX: I25.110 Atherosclerotic heart disease of native coronary artery with unstable angina pectoris (principal); I46.9 Cardiac arrest, cause unspecified; I49.01 Ventricular fibrillation; S12.200A Unspecified displaced fracture of third cervical vertebra, initial encounter for closed fracture; W06.XXXA Fall from bed, initial encounter; Y92.230 Patient room in hospital as the place of occurrence of the external cause; R55 Syncope and collapse; S01.01XA Laceration without foreign body of scalp, initial encounter

== ENCOUNTER → 2018-05-19 15:19 | Outpatient (CLI) | payer MEDICARE, OTHER ==
[2018-05-14 13:18] VITALS: BMI 26.3
[~2018-05-19 15:19] MED LIST: ASCORBIC ACID500 MG PO; BAYER CHEWABLE81 MG PO; COREG 3.1253.125 MG PO; FISH OIL 1,0001 CA1 PO; MULTI-DAY VITAM1 TAB PO; PLAVIX75 MG PO; VITAMIN A10000 UNIT PO; VITAMIN E400 UNI2 PO; VITAMIN E600 UNIT
== END | disposition home or self-care (01) ==
LOC: D.RAD 15:19
DX: S80.02XA Contusion of left knee, initial encounter (principal); X58.XXXA Exposure to other specified factors, initial encounter

== ENCOUNTER 2018-05-22 12:51 | Emergency (ER) | payer MEDICARE, OTHER ==
[~2018-05-22] VITALS: Ht 172.7 cm; Wt 78.6 kg
[2018-05-22 13:01] VITALS: Ht 172.7 cm; Wt 78.6 kg
[2018-05-22 13:56] LABS: BASOPHILS 0.5 % (0-2); EOSINOPHILS 3.7 % (0-7); HEMOGLOBIN 14.1 g/dL (13.5-17.5); IMMATURE GRANULOCYTES 0.6 % (0-5); LYMPHOCYTES 27.5 % (15-50); MCHC 34.4 g/dL (31.0-37.0); MCV 98.8 fL (80.0-100.0); MEAN PLATELET VOLUME 10.5 fL (7.4-10.4); MONOCYTES 10.8 % (2-11); NEUTROPHILS 56.9 % (40-80); RBC 4.15 10x6/uL (4.20-6.10); RDW 12.6 % (11.5-14.5); WBC 8.4 10x3/uL (4.8-10.8)
[2018-05-22 13:57] LABS: PLATELET COUNT 209 10x3/uL (130-400)
[2018-05-22 14:27] LABS: ALBUMIN 3.8 g/dL (3.4-5.0); ALKALINE PHOSPHATASE 119 U/L (46-116); ALT (SGPT) 31 U/L (10-68); BILIRUBIN - TOTAL 0.88 mg/dL (0.2-1.3); CALC OSMOLALITY 280 mosm/kg (275-300); CARBON DIOXIDE 24.4 mmol/L (21.0-32.0); CHLORIDE - SERUM 104 mmol/L (98-107); GLUCOSE 92 mg/dL (74-106); MAGNESIUM - SERUM 2.3 mg/dL (1.8-2.4); POTASSIUM - SERUM 4.3 mmol/L (3.5-5.1); PRO BNP 176 pg/mL (0-125); PROTEIN - SERUM 7.4 g/dL (6.4-8.2); SODIUM 141 mmol/L (136-145); UREA NITROGEN 13 mg/dL (7-18)
[2018-05-22 14:34] LABS: CALCIUM 9.1 mg/dL (8.5-10.1); CREATININE - SERUM 0.8 mg/dL (0.6-1.3); eGFR NON AFRICAN AMERICAN > 90 mL/min (90-120)
[2018-05-22 14:39] LABS: TROPONIN-I 0.093 ng/mL (0.000-0.060)
[2018-05-22 16:03] VITALS: BP 110/58
== END 2018-05-22 15:50 | disposition home or self-care (01) ==
LOC: D.ER 12:51
PROVIDERS: Family Medicine
DX: I25.10 Atherosclerotic heart disease of native coronary artery without angina pectoris (principal); Z86.79 Personal history of other diseases of the circulatory system; R00.1 Bradycardia, unspecified; I49.3 Ventricular premature depolarization

== ENCOUNTER → 2019-08-17 08:01 | Outpatient (CLI) | payer MEDICARE, OTHER ==
[2018-05-22 13:01] VITALS: BMI 26.3
== END | disposition home or self-care (01) ==
LOC: D.HCCARDIO 08:01
PROVIDERS: ATTEND Internal Medicine Cardiovascular Disease
DX: I25.10 Atherosclerotic heart disease of native coronary artery without angina pectoris (principal)